=== PATIENT | female | born 1995 | race Hispanic/Latino ===

== ENCOUNTER 2021-07-30 13:17 | Emergency (ER) | payer OTHER ==
[2021-07-30 14:07] LABS: Urine Blood 2+ (Negative); Urine Glucose Negative (Negative); Urine Protein Negative (Negative); Urine pH 6.5 (5.0-7.0)
[2021-07-30 14:18] LABS: Urine Bacteria 20-50 /HPF (<20)
[2021-07-30 14:58] LABS: Absolute Lymphocytes (CBC) 1.7 K/uL (0.7-4.9); Hematocrit 37.8 % (36.0-45.0); Lymphocytes % 20.2 % (15.3-44.8); MPV 9.1 fL (7.6-11.3)
[2021-07-30 15:18] LABS: ALT/SGPT 18 U/L (12-78); AST/SGOT 9 U/L (15-37); Albumin 3.4 g/dL (3.4-5.0); Alkaline Phosphatase 72 U/L (45-117); BUN Blood Urea Nitrogen 8 mg/dL (7-18); Bicarbonate 27 mmol/L (21-32); Bilirubin Total 0.6 mg/dL (0.2-1.0); Glucose Level 122 mg/dL (74-106); Lipase 76 U/L (73-393); Potassium 3.9 mmol/L (3.5-5.1); Protein, Total 7.8 g/dL (6.4-8.2); Sodium Level 135 mmol/L (136-145)
[2021-07-30 15:49] LABS: SARS-COV-2 RT PCR NEGATIVE (NEGATIVE)
--- NOTE | 2021-07-30 16:25 | RAD REPORT ---
EXAM DESCRIPTION: CT - Abdomen Pelvis W Contrast - 07/30/2021 3:50 pm CLINICAL HISTORY: fever, chills;Abd pain COMPARISON: <Comparisons> TECHNIQUE: Biphasic, helical CT imaging of the abdomen and pelvis was performed following 100 ml non -ionic IV contrast. No oral contrast administered. All CT scans are performed using dose optimization technique as appropriate and may include automated exposure control or mA/KV adjustment according to patient size. FINDINGS: No suspicious findings in the lung bases. The liver, spleen, and pancreas show no suspicious findings. Gallbladder is contracted. No acute gall bladder process suspected. No biliary tree dilatation. There is mildly heterogeneous, diminished enhancement along the superolateral left renal cortex. This is a pattern typical for mild pyelonephritis. No abscess or other complicating factor. The remainder of the left kidney is well is the entire right kidney otherwise show normal cortical and medullary e nhancement characteristics. No solid mass lesion. No hydronephrosis is present. No bladder abnormalit ies. No adrenal abnormalities. Normal size uterus is present. A T-shaped IUD is in place. Orientation of the device is somewhat unus ual with the ID possibly flipped with the long-stem migrating into the myometrium of the fundus. Smal l follicles identified in the ovaries. No suspicious ovarian or fallopian tube finding. No gastric dilatation or gastric wall thickening. Large amount of stool is present in the colon. Rect um is dilated to 6.5 cm by retained stool. No free air, free fluid or inflammatory stranding. No hernia, mass or bulky lymphadenopathy. No suspicious bony findings. IMPRESSION: Mild left-sided pyelonephritis. No abscess or other complicating factor. 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
--- NOTE | 2021-07-30 16:49 | EDPHYS ---
Physician Documentation [facility] Name: Jenna James Age: 25 yrs Sex: Female : 1995 Arrival Date: 07/30/2021 Time: 13:21 Bed 25 Private MD: ED Physician Jorge Alberto Mtz HPI: 07/30 15:32 This 25 yrs old Female presents to ER via Ambulatory with complaints of rn Epigastric Pain, Back Pain, chills/cold sweats. 15:32 The patient presents with pain that is acute, with no known mechanism of injury. The rn symptoms are located in the low back. Onset: The symptoms/episode began/occurred yesterday. The pain radiates to the abdomen. Associated signs and symptoms: Pertinent positives: abdominal pain, Pertinent negatives: fever, hematuria, incontinence, nausea, numbness, tingling, urinary retention, weakness. Modifying factors: The patient symptoms are alleviated by nothing, the patient symptoms are aggravated by nothing. Severity of symptoms: At their worst the symptoms were moderate, in the emergency department the symptoms have improved. The patient has not experienced similar symptoms in the past. The patient has not recently seen a physician. Reports 2 days of chills, myalgias, upper abd pain, and lower back pain. No injury or fall. No fever. No congestion/sore throat/cough. NO vomiting/diarrhea. Does report burning with urination. . 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 - Social history:: Smoking status: Patient denies any tobacco usage or history of. - Family history:: not pertinent. - Hospitalizations: : No recent hospitalization is reported. ROS: 15:32 Constitutional: Negative for fever, + for chills Eyes: Negative for injury, pain, rn redness, and discharge, Neck: Negative for injury, pain, and swelling, Cardiovascular: Negative for chest pain, palpitations, and edema, Respiratory: Negative for shortness of breath, cough, wheezing, and pleuritic chest pain, Abdomen/GI: Negative for vomiting, diarrhea, and constipation, Back: Negative for injury : Negative for injury, bleeding, discharge, and swelling, MS/Extremity: Negative for injury and deformity, Skin: Negative for injury, rash, and discoloration, Neuro: Negative for headache, weakness, numbness, tingling, and seizure. Exam: 15:32 Constitutional: This is a well developed, well nourished patient who is awake, alert, rn and in no acute distress. Head/Face: Normocephalic, atraumatic. Eyes: Periorbital areas with no swelling, redness, or edema. Cardiovascular: Regular rate and rhythm. No pulse deficits. Respiratory: No increased work of breathing, no retractions or nasal flaring. Abdomen/GI: soft, non-tender, no rebound Back: No spinal tenderness. No costovertebral tenderness. Full range of motion. Skin: Warm, dry with normal turgor. Normal color with no rashes, no lesions, and no evidence of cellulitis. MS/ Extremity: Pulses equal, no cyanosis. Neurovascular intact. Full, normal range of motion. Equal circumference. Neuro: Awake and alert, GCS 15, oriented to person, place, time, and situation. Cranial nerves II-XII grossly intact. Motor strength 5/5 in all extremities. Sensory grossly intact. Cerebellar exam normal. Normal gait. Vital Signs: 13:52 BP 113 / 68; Pulse 89; Resp 18; Temp 98.2; Pulse Ox 99% on R/A; ph MDM: 13:51 Patient medically screened. rn 16:45 Differential diagnosis: Pyelonephritis Ureterolithiasis UTI, flu, viral syndrome. Data rn reviewed: vital signs, nurses notes, lab test result(s), radiologic studies, CT scan, and as a result, I will discharge patient. Counseling: I had a detailed discussion with the patient and/or guardian regarding: the historical points, exam findings, and any diagnostic results supporting the discharge/admit diagnosis, lab results, radiology results, the need for outpatient follow up, to return to the emergency department if symptoms worsen or persist or if there are any questions or concerns that arise at home. Response to treatment: the patient's symptoms have mildly improved after treatment, and as a result, I will discharge patient. Special discussion: I discussed with the patient/guardian in detail that at this point there is no indication for admission to the hospital. It is understood, however, that if the symptoms persist or worsen the patient needs to return immediately for re-evaluation. ED course: Pt with normal vitals, normal WBC, non-toxic appearance, CT and urine consistent with pyelonephritis/UTI, no complication, had long conversation with patient and significant other in room, joint decision to dc home with abx and IV abx here and given return precautions. 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 07/30 13:57 Order name: Urine Culture rn 07/30 13:57 Order name: Urine Microscopic Only; Complete Time: 14:41 rn 07/30 14:08 Order name: Urine Dipstick-Ancillary; Complete Time: 14:41 EDMS 07/30 14:17 Order name: Urine --Ancillary (enter results); Complete Time: 14:41 eb 07/30 14:42 Order name: CBC with Diff; Complete Time: 15:20 rn 07/30 14:42 Order name: CMP; Complete Time: 15:20 rn 07/30 13:57 Order name: Urine Dipstick-Ancillary (obtain specimen); Complete Time: 14:07 rn 07/30 13:57 Order name: Urine Test (obtain specimen); Complete Time: 14:07 rn 07/30 14:42 Order name: Lipase; Complete Time: 15:20 rn 07/30 14:42 Order name: CT Abd/Pelvis - IV Contrast Only; Complete Time: 16:29 rn 07/30 14:42 Order name: IV Saline Lock; Complete Time: 14:53 rn 07/30 14:42 Order name: Labs collected and sent; Complete Time: 14:53 rn 07/30 14:42 Order name: COVID-19/FLU A+B (Document "Date of Onset" if Symptomatic); Complete Time: rn 16:29 Administered Medications: 16:55 Drug: Rocephin (cefTRIAXone) 1 grams Route: IV; Rate: calculated rate; Site: left lr4 antecubital; 17:10 Follow up: IV Status: Completed infusion lr4 Disposition Summary: 07/30/21 16:48 Discharge Ordered Location: Home rn Problem: new rn Symptoms: have improved rn Condition: Stable rn Diagnosis - Pyelonephritis acute rn Followup: rn - With: Private Physician - When: As needed - Reason: Recheck today's complaints, Re-evaluation by your physician Discharge Instructions: - Discharge Summary Sheet rn - Pyelonephritis, Adult rn Forms: - Medication Reconciliation Form rn - Thank You Letter rn - Antibiotic pattern grader cutter - Prescription Opioid Use rn - Work release form lr4 Prescriptions: - cefpodoxime 100 mg Oral Tablet - take 2 tablets by ORAL route every 12 hours for 10 days take with food; 40 rn tablet; Refills: 0, Product Selection Permitted Signatures: Dispatcher [employer] Jorge Alberto Gutierrez MD MD rn Hall, Patricia, RN RN Suzanne Bergeron RN RN lr4
--- NOTE | 2021-07-30 16:49 | ER ---
Nurse's Notes [facility] Name: Jenna James Age: 25 yrs Sex: Female : 1995 Arrival Date: 07/30/2021 Time: 13:21 Bed 25 Private MD: Diagnosis: Pyelonephritis acute Presentation: 07/30 13:52 Chief complaint: Patient states: Upper abdominal pain, low back pain, headache, and ph fever/chills, denies N/V/D. Coronavirus screen: Vaccine status: Patient reports being unvaccinated. Ebola Screen: No symptoms or risks identified at this time. Initial Sepsis Screen: Does the patient meet any 2 criteria? No. Patient's initial sepsis screen is negative. Does the patient have a suspected source of infection? No. Patient's initial sepsis screen is negative. Risk Assessment: Do you want to hurt yourself or someone else? Patient reports no desire to harm self or others. Onset of symptoms was July 30, 2021. 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 - Social history:: Smoking status: Patient denies any tobacco usage or history of. - Family history:: not pertinent. - Hospitalizations: : No recent hospitalization is reported. Screenin:59 Abuse screen: Denies threats or abuse. Nutritional screening: No deficits noted. lr4 Tuberculosis screening: No symptoms or risk factors identified. Fall Risk None identified. Assessment: 13:57 General: Appears in no apparent distress. comfortable, Behavior is calm, cooperative. lr4 General: Reports chills for fever for fatigue for. Pain: Complains of pain in back Pain. Neuro: No deficits noted. Cardiovascular: No deficits noted. Respiratory: No deficits noted. GI: Reports upper abdominal pain, nausea. Vital Signs: 13:52 BP 113 / 68; Pulse 89; Resp 18; Temp 98.2; Pulse Ox 99% on R/A; ph ED Course: 13:21 Patient arrived in ED. am2 13:51 Jorge Alberto Mtz MD is Attending Physician. rn 13:53 Triage completed. ph 13:54 Arm band placed on Patient placed in an exam room. ph 13:57 Suzanne Dewitt, RN is Primary Nurse. lr4 14:00 Patient has correct armband on for positive identification. Bed in low position. Call lr4 light in reach. Side rails up X 1. 14:00 No provider procedures requiring assistance completed. lr4 14:53 COVID-19/FLU A+B (Document "Date of Onset" if Symptomatic) Sent. lr4 14:53 Inserted saline lock: 20 gauge in left antecubital area, using aseptic technique. lr4 15:51 CT Abd/Pelvis - IV Contrast Only In Process Unspecified. EDMS 17:10 IV discontinued, intact, bleeding controlled, No redness/swelling at site. Pressure lr4 dressing applied. Administered Medications: 16:55 Drug: Rocephin (cefTRIAXone) 1 grams Route: IV; Rate: calculated rate; Site: left lr4 antecubital; 17:10 Follow up: IV Status: Completed infusion lr4 Outcome: 13:59 Condition: stable lr4 16:48 Discharge ordered by . rn 17:10 Discharged to home lr4 17:10 Discharged to home ambulatory. 17:10 Discharge instructions given to 17:10 Discharge instructions given to patient. 17:10 Patient left the ED. lr4 Signatures: Dispatcher [employer] EDMS Jorge Alberto Mtz MD MD rn Hall, Patricia, RN RN Violeta Conroy [facility] Suzanne Dewitt, RN RN lr4
[2021-07-30] MEDS ORDERED: CEFTRIAXONE 1000 MG/VIAL ONE (16:50)
[2021-07-30 18:08] VITALS: BP 113/68; TEMP 98.2; O2SAT 99
== END 2021-07-30 17:10 | disposition home or self-care (01) ==
LOC: ER 13:17
DX: R10.13 Epigastric pain (principal); M54.50 Low back pain, unspecified; R51.9 Headache, unspecified; R50.9 Fever, unspecified; N10 Acute pyelonephritis; Z20.822 Contact with and (suspected) exposure to COVID-19
CPT/HCPCS: 87088; 85025; 87086; 36415; 81025; 87077; 87186; 83690; 80053; 0240U; 74177; 96374; 99284; Q9967; 81003; 81015